=== PATIENT | female | born 1990 | race Two or more races ===

== ENCOUNTER 2024-05-30 12:58 | Outpatient (REF) | payer MEDICAID, SELFPAY ==
--- NOTE | ~2024-05-30 | US_ITS ---
EXAMINATION: US , LIMITED CLINICAL INFORMATION: Size discrepancy second trimester, dating COMPARISON: None available. TECHNIQUE: Transabdominal imaging of pelvis is performed. FINDINGS: Single live intrauterine fetus in transverse lie and anterior placenta. heart rate is 124 bpm. On biometric, Biparietal diameter measures 2.80 cm corresponding to 17 weeks and 5 days, Head circumference measures 14.86 cm corresponding to 18 weeks 0 days, Abdominal circumference measures 12.0 cm corresponding to 17 weeks 5 days and Femur length measures 2.69 corresponding to 18 weeks 2 days. The composite ultrasound gestational age by today's measurements is 18 weeks 0 days and MANGO of 10/31/2024. The clinical gestational age is 18 weeks 0 days and MANGO of 10/28/2024. The left ovary measures 3.22 x 3.38 x 1.93 cm. There is an anechoic cyst measuring 1.7 x 1.3 x 1.7 cm. Right ovary measures 2.57 x 1.49 x 2.48 cm and appears unremarkable. There is no free fluid in the cul-de-sac US/US OB limited IMPRESSION: Single live intrauterine fetus with an ultrasound gestational age of 18 weeks and 0 days with MANGO of 10/31/2024. heart rate is 124 bpm. Electronically signed by: Abdoul Daniel MD 06/01/2024 11:52 AM EDT
== END 2024-05-30 12:59 | disposition home or self-care (01) ==
LOC: HO.US 12:58
PROVIDERS: Visit Provider Advanced Practice Midwife
DX: O26.842 Uterine size-date discrepancy, second trimester (principal)
CPT/HCPCS: 76815

== ENCOUNTER 2024-06-04 12:41 | Outpatient (AMB) | payer MEDICAID, SELFPAY ==
--- NOTE | 2024-06-04 12:49 | MHC.OFFVISPN ---
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: Yes Calender Let Off Operator Name: Matthew ID #[id number] Information Interpreted: non-clinical & clinical Accompanied by: Significant Other Allergies No Known Allergies Allergy (Verified 06/04/24 12:57) Is last menstrual period known: Yes Last menstrual period: 01/22/24 Post menopausal: No Patient : Yes Do you need a note to return to daycare/school/sports/work: No PFSH Family History (Updated 06/04/24 @ 13:51 by Rika Patel LPN) Mother Dementia Paternal Grandfather Diabetes Social History (Updated 06/04/24 @ 13:51 by Rika Patel LPN) Household Members: Spouse and Family Both parents involved: Yes Housing: Apartment 75 years or older and lives alone: No Alcohol intake: never Female Reproductive History Menstrual Age of Menarche: 21 (per pt via hand weaver.) Duration of menses: 3-5 days Date of last menstrual period: 01/22/24 control method: none Total pregnancies: 3 Full term: 2 Premature: 0 Number of Living Children: 2 Ab induced: 0 Ab spontaneous: 0 Ectopics: 0 Multiple births: 0 Date of last pap smear: 10/05/21 History of abnormal pap smear: No History of STI: No History History 3 Elective abortions 0 Para 2 Spontaneous abortions 0 Hx # Term Pregnancies 2 Ectopic pregnancies 0 Hx # Pregnancies 0 Multiple births 0 Past Pregnancies Del. Date GA/Weeks Outcome Route Wt Inf Gender Labor Henrietta Anesthesia Location Provider Complicate 09/17/17 40 live - full term vaginal delivery Female 9hours epidural none 05/04/22 40 live - full term vaginal delivery Male 2 hours epidural Education First Trimester Education Checklist Plans/Education - by Trimester Counseled: Yes HIV and other routine tests: discussed Infectious disease exposure: chicken pox immunity discussed Influenza vaccine: discussed Nutrition and weight gain counseling: special diet: discussed Sexual activity: discussed Exercise: discussed Tobacco use: No Alcohol use: No Substance use: No Environmental/home/work hazards: discussed Domestic violence: discussed Travel: discussed Seatbelt use: discussed Toxoplasmosis precautions (cats/raw meat): discussed Childbirth education/discussion: symptoms education/discussion Risk factors identified by history: discussed Testing education: cystic fibrosis testing education done, sickle cell testing education done, thalassemia testing education done, TB testing education done and group B strep education danger signs: Yes education packet: symptoms, vitamins and iron, diet and weight gain, fish and mercury intake, listeriosis prevention, caffeine use, eating disorder history, exercise and activity, sexual activity, medication use, toxoplasmosis precautions, sauna/hot tub use, dental care and HIV education and counseling Mental health: further discussion needed Anticipated course of care: discussed Indications for ultrasound: discussed Health center information: nature of practice discussed, personnel described, visit schedule reviewed, ultrasounds policy reviewed and coverage 24 hours a day Questionnaire History History : 3 Visit MANGO Calculator Estimated Delivery Date Method Current WG Current Estimate 10/28/24 Ultrasound #1 19w 1d Other Estimates 10/28/24 LMP (Certain) 19w 1d Expected Delivery Route/Plan Vaginal delivery Specific Issues/Plans Late to care, Language barrier OB Visit Log Initial Weight: 71.758 kg Date <del>?</del> EGA Weight Gest Week Fundal Ht Present FHR move Efface % Edema BP PrePreg We Weight GTT <del>?</del> Glucose LV Protein Blood Type 06/04/24 <del>?</del> 19w 1d 71.724 kg (-33.707 g) 71.724 kg <del>?</del> Notes Visit Date: 06/04/24 Last Updated by: Rika Patel LPN Emily is here today with her significant other for her Nurse intake. LMP 01/22/24 MANGO 10/28/24. U/s on 05/30/24 size=dates. Pt has recently moved here with her family from [facility], and is now living in [facility]. discussed her delivery at [facility]. and pt would also like to be seen there for the remainder of due to transportation issues. Pt and her partner were informed i will start process for transfer. Discussed with pt PNL including UDS and CF testing. Pt will have her labs drawn today. Discussed Panorama testing, and will have pt drawn at her next visit. Discussed with pt, to try to eat healthy foods and increase her H2O intake. Discussed recommendation for Flu vaccine in . Directed to [facility], address and phone number provided to pt. Pt was informed she will be notified of next appt here for her OB Physical. Pt was informed that if any issues regarding her arise she needs to be seen at [facility], at [facility], address provided. Pt reports movement, and also FHT were heard today. This discussion was with the assistance of [place] hand weaver, Matthew ID#[id number]. Initial Infection History & Risk Profile History of STDs: No HIV risk evaluation: low risk Hepatitis B risk evaluation: low risk Patient or partner has history of Genital Herpes: No Varicella/chicken pox status: unknown Genetic Screening & Savings Counselor Genetic Screening/Teratology Counseling - Includes patient, baby's father, or anyone in either family with: 1. Patient's age 35 years or older as of estimated date of delivery: No 2. Thalassemia (Moroccan, American, Mediterranean, or Background); MCV less than 80: No 3. Neural Tube Defect (Meningomyelocele, Spina Bifida, or Anencephaly): No 4. Congenital Heart Defect: No 5. Down Syndrome: No 6. Nic-Sachs (Ashkenazi Confucianism, Cajun, Mongolian French): No 7. Khalif Disease (Ashkenazi Confucianism): No 8. Familial Dysautonomia (Ashkenazi Confucianism): No Infection History Other (see comments) Source: [employer] Coding Level of Care Code New Pt Carlos Alberto Patient Type New History Problem Focused Exam Problem Focused Medical Decision Making Low Complexity Time Spent (min) 50 Assessment & Plan Assessment & Plan Orders: Orders US OB /maternal detail 2 Weeks Z36.89 - Encounter for other specified screening Syphilis Screen Today Z32.01 - Encounter for test, result positive Hepatitis C Antibody Today Z32.01 - Encounter for test, result positive Urine Culture Today Z32.01 - Encounter for test, result positive HIV Ab/Ag Today Z32.01 - Encounter for test, result positive Drug Screen Urine Today Z32.01 - Encounter for test, result positive Rubella IgG Antibody Today Z32.01 - Encounter for test, result positive Hemoglobin Electrophoresis Today Z32. - Encounter for test, result positive Complete Blood Count no Diff Today Z32. - Encounter for test, result positive Hepatitis B Surface Antigen Today Z32. - Encounter for test, result positive Varicella IgG Antibody Today Z32. - Encounter for test, result positive Screen Today Z32. - Encounter for test, result positive CF Carrier Screen Today Z32. - Encounter for test, result positive
[2024-06-04 12:55] VITALS: BMI 26.3
== END 2024-06-04 15:28 | disposition home or self-care (01) ==
LOC: HO.HWS 12:41
PROVIDERS: Visit Provider Advanced Practice Midwife
DX: Z34.90 Encounter for supervision of normal pregnancy, unspecified, unspecified trimester (principal)
CPT/HCPCS: 25942

== ENCOUNTER 2024-06-04 12:41 | Outpatient (REF) | payer MEDICAID, SELFPAY ==
[2024-06-04 15:14] LABS: Hematocrit 34.2 % (37.0-47.0); Hemoglobin 11.7 g/dl (12.0-16.0); Mean Corpuscular HGB Conc 34.2 g/dl (31.0-35.0); Mean Corpuscular Hemoglobin 30.8 pg (27.0-33.0); Mean Platelet Volume 11.9 fL (9.4-12.3); Platelet Count 191 X10*3/uL (160-400); Red Cell Distribution Width 12.9 % (11.0-16.0); White Blood Count 8.1 X10*3/uL (4.8-10.8)
[2024-06-04 15:22] LABS: Amphetamine Screen Urine Not Detected (Not Detect); Barbiturates, Urine Not Detected (Not Detect); Benzodiazepines Screen Urine Not Detected (Not Detect); Buprenorphine Scr Not Detected (Not Detect); Cannabinoid Screen Urine Not Detected (Not Detect); Cocaine Screen Urine Not Detected (Not Detect); Fentanyl, urine Not Detected (Not Detect); Methadone Screen, Urine Not Detected (Not Detect); Opiate Screen Urine Not Detected (Not Detect); Oxycodone Screen Urine Not Detected (Not Detect); Phencyclidine Screen Urine Not Detected (Not Detect)
[2024-06-05 04:22] LABS: Syphilis Screen Nonreactive (Nonreactive)
[2024-06-05 04:34] LABS: HBsAGNum1 0.46 S/CO (0.00-0.99); HIV AB/AG Nonreactive (Nonreactive); HIV Num 1 0.04 S/CO (0.00-0.99); Hepatitis B Surface Antigen Negative (Negative); ~HepC Num1 0.72 S/CO (0.00-0.79); ~Hepatitis C Antibody Nonreactive (Nonreactive)
[2024-06-06 13:10] LABS: Rubella IgG Antibody <0.90 Index
[2024-06-06 19:14] LABS: Varicella IgG Antibody 6.76 S/CO
[2024-06-09 14:48] LABS: Hematocrit 36.2 % (35.0-45.0); Hemoglobin 11.7 g/dL (11.7-15.5); MCH 30.4 pg (27.0-33.0); RBC 3.85 Million/uL (3.80-5.10); RDW 13.1 % (11.0-15.0)
[2024-06-23 14:43] LABS: CF Ethnicity NG; Cystic Fibrosis NEGATIVE
== END 2024-06-04 12:42 | disposition home or self-care (01) ==
LOC: HO.LAB 12:41
PROVIDERS: Visit Provider Advanced Practice Midwife
DX: Z36.89 Encounter for other specified antenatal screening (principal)
CPT/HCPCS: 80307; 81220; 83020; 85014; 85018; 85027; 85041; 86762; 86780; 86787; 86803; 86850; 86900; 87086; 87340; 87389; 99212

== ENCOUNTER 2024-11-19 10:09 | Outpatient (REF) | payer MEDICAID, SELFPAY ==
[2024-11-19 11:12] LABS: MANUAL DIFF FLAG NO
[2024-11-19 11:16] LABS: Basophils Absolute Auto 0.1 X10*3/uL (0.0-0.2); Basophils Percent Auto 1.2 % (0-2); Eosinophils Absolute Auto 0.2 X10*3/uL (0.0-0.4); Eosinophils Percent Auto 3.8 % (0-4); Hematocrit 35.7 % (37.0-47.0); Hemoglobin 12.1 g/dl (12.0-16.0); Imm Gran Abs Auto 0.04 X10*3/uL (0.00-0.03); Imm Gran Pct Auto 0.9 % (0.0-0.4); Lymphocytes Absolute Auto 1.9 X10*3/uL (1.2-4.9); Lymphocytes Percent Auto 45.2 % (20-40); Mean Corpuscular HGB Conc 33.9 g/dl (31.0-35.0); Mean Corpuscular Volume 91.5 fL (80.0-98.0); Mean Platelet Volume 11.3 fL (9.4-12.3); Monocytes Absolute Auto 0.3 X10*3/uL (0.1-1.2); Monocytes Percent Auto 6.1 % (2-11); Neutrophils Absolute Auto 1.8 x10*3/uL (2.0-8.3); Neutrophils Percent Auto 42.8 % (45-73); Platelet Count 196 X10*3/uL (160-400); Red Cell Distribution Width 12.4 % (11.0-16.0); White Blood Count 4.2 X10*3/uL (4.8-10.8)
[2024-11-19 11:33] LABS: Estimated Average Glucose 100 mg/dL; Hemoglobin A1c % 5.1 % (<6.0)
[2024-11-19 11:43] LABS: Alanine Aminotransferase 26 U/L (0-31); Albumin Level 3.7 g/dL (3.5-5.0); Alkaline Phosphatase 67 U/L (39-117); Anion Gap 9 (12-20); Aspartate Amino Transferase 28 U/L (5-31); Bilirubin Direct < 0.2 mg/dL (0.0-0.5); Bilirubin Total 0.2 mg/dL (0.0-1.0); Blood Urea Nitrogen 13 mg/dL (9-16); Calcium 8.8 mg/dL (8.4-10.2); Carbon Dioxide 24 mmol/L (22-29); Chloride 111 mmol/L (96-108); Cholesterol 136 mg/dL (<200); Estimated Glomerular Filt Rate > 60; Glucose Random 81 mg/dL (60-115); HDL Cholesterol 34 mg/dL (>40); LDL Cholesterol Calculated 93 mg/dL (<100); Potassium 3.7 mmol/L (3.3-5.1); Sodium 140 mmol/L (135-145); Triglycerides 45 mg/dL (<150)
[2024-11-19 11:50] LABS: Syphilis Screen Nonreactive (Nonreactive)
[2024-11-19 11:59] LABS: HIV AB/AG Nonreactive (Nonreactive); HIV Num 1 0.06 S/CO (0.00-0.99); Vitamin D 25-OH Total 24.9 ng/mL (>30); ~HepC Num1 0.74 S/CO (0.00-0.79); ~Hepatitis C Antibody Nonreactive (Nonreactive)
[2024-11-19 13:19] LABS: CT PCR NOT DETECTED (Not Detect.); NG PCR NOT DETECTED (Not Detect.)
== END 2024-11-19 10:10 | disposition home or self-care (01) ==
LOC: HO.HHCL 10:09
PROVIDERS: Visit Provider Family Medicine
DX: F53.0 Postpartum depression (principal); Z11.3 Encounter for screening for infections with a predominantly sexual mode of transmission
CPT/HCPCS: 80048; 80061; 80076; 82306; 83036; 85025; 86780; 86803; 87389; 87491; 87591